=== PATIENT | male | born 1990 | race Caucasian/White ===

== ENCOUNTER → 2017-05-05 | Outpatient (CLI) | payer OTHER ==
--- NOTE | 2017-05-05 14:20 | DIAGNOSTIC IMAGING REPORT ---
BONY ORBITS 3 VIEWS CLINICAL HISTORY: MRI clearance. FINDINGS: 3 views of the bony orbits are obtained. No prior studies are available for comparison at the time of dictation. There is no radiodense/metallic foreign body seen in the region of the bony orbits. The bony orbits are intact as imaged. The visualized paranasal sinuses and the mastoid air cells appear clear. The imaged calvarium appears intact. IMPRESSION: There is no radiodense/metallic foreign body seen in the region of the bony orbits. Electronically signed by: Howard Prabhakar M.D. 05/05/2017 2:19 PM Dictated Date/Time: 05/05/2017 2:18 PM
--- NOTE | 2017-05-05 16:09 | DIAGNOSTIC IMAGING REPORT ---
ADDENDUM Additionally, included in the differential would be a primary clival lesion such as giant cell tumor. This can notably have a large aneurysmal bone cell cyst. Electronically signed by: Caesar Hebert M.D. 05/06/2017 10:28 AM Dictated Date/Time: 05/06/2017 10:25 AM ADDENDUM On further consideration, differential considerations for this mass include malignant neoplasms such as craniopharyngioma, chordoma, and telangiectatic osteosarcoma, as well as the benign entity of aneurysmal bone cyst. Craniopharyngioma would not expected to have such a multicystic appearance, though the diagnosis remains possible. No intralesional fat to suggest teratoma. Chondrosarcoma would not be expected to be cystic. Electronically signed by: Caesar Hebert M.D. 05/06/2017 7:53 AM Dictated Date/Time: 05/06/2017 7:49 AM ORIGINAL REPORT ORBIT COMBO CLINICAL HISTORY: 27 years-old Male presenting with WITH CONTRAST ONLY, OPTIC NEUROPATHY. TECHNIQUE: Multisequence, multiplanar MR imaging of the orbits was performed before and after the administration of intravenous contrast. IV contrast: 7 mL of Gadavist. COMPARISON: None. FINDINGS: Localizer images: Unremarkable. A lobular destructive extra-axial mass centered in the clivus extends superiorly through the sella into the suprasellar region with associated mass effect on the optic chiasm and inferior frontal lobes. This mass is predominantly T2 hyperintense with numerous locules demonstrating fluid fluid levels with dependent T2 hypointensity. The mass extends into the nasopharynx resulting in obstruction. There is a peripheral T2 hypointense component of the mass, which appears to be soft tissue. Cystic components of the mass do not enhance, however, the remainder of the mass does demonstrate avid enhancement on postcontrast imaging. The pituitary gland appears to be preserved posteriorly displaced with the mass immediately anterior. The cavernous portions of the internal carotid arteries remain patent. Optic nerves normal appearing. Orbits normal. Remainder of brain parenchyma within normal limits. 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 Less likely differential considerations include intracranial teratoma, chondrosarcoma, or chordoma. Patient's symptomatology likely result from mass effect on the optic chiasm. Electronically signed by: Caesar Hebert M.D. 05/05/2017 4:08 PM Dictated Date/Time: 05/05/2017 3:36 PM
== END | disposition home or self-care (01) ==
LOC: C.MRIBC 13:29
PROVIDERS: ATTEND Ophthalmology
DX: H46.8 Other optic neuritis (principal); R22.0 Localized swelling, mass and lump, head